=== PATIENT | female | born 2000 | race Hispanic/Latino ===

== ENCOUNTER 2021-12-16 12:11 | Emergency (ER) | payer MEDICAID ==
[~2021-12-16] VITALS: Ht 157.5 cm; Wt 68.9 kg
[2021-12-16] MEDS ORDERED: KETOROLAC 30MG VIAL (30MG/ML) IM ONE (12:30)
[2021-12-16] MEDS ORDERED: NAPR-1180 PO (14:39)
[2021-12-16 14:48] VITALS: BP 116/60
[2021-12-16 15:05] LABS: APPEARANCE,URINE Clear (CLEAR); BILIRUBIN,URINE Negative (NEGATIVE); COLOR,URINE Yellow (YELLOW); GLUCOSE, URINE (UA) Negative (NEGATIVE); KETONES,URINE Trace mg/dL (NEGATIVE); LEUKOCYTE ESTERASE ,URINE Negative (NEGATIVE); NITRATE,URINE Negative (NEGATIVE); OCCULT BLOOD,URINE Small (NEGATIVE); PROTEIN,URINE Negative (NEGATIVE)
[2021-12-16 15:14] LABS: BACTERIA,URINE Few /HPF (None Seen); RBC,URINE 0-1 /HPF (0-1)
[2021-12-16 15:15] LABS: MUCUS,URINE Moderate LPF (None Seen); SQUAMOUS EPITHELIAL CELL,UR Moderate /HPF (0-2)
== END 2021-12-16 14:51 | disposition home or self-care (01) ==
LOC: EDH 12:11
DX: M25.561 Pain in right knee (principal); M25.562 Pain in left knee; Z88.0 Allergy status to penicillin; Z79.899 Other long term (current) drug therapy; Z98.890 Other specified postprocedural states; W19.XXXA Unspecified fall, initial encounter; Y93.89 Activity, other specified; Y92.89 Other specified places as the place of occurrence of the external cause; Y99.8 Other external cause status
CPT/HCPCS: 29505; 73552; 73562 ×2; 73590; 81001; 81025; 87088; 96372; 99284; J1885

== ENCOUNTER 2023-05-25 20:06 | Emergency (ER) | payer MEDICAID ==
[~2023-05-25] VITALS: Ht 165.1 cm; Wt 69.6 kg
[~2023-05-25 20:06] MED LIST: NAPR-1180 PO
[2023-05-25 20:18] VITALS: BP 120/80; PULSE 85; RESP 18
[2023-05-25] MEDS ORDERED: HYDR28.32 TP (21:22)
[2023-05-25] MEDS ORDERED: DIPH-1242 PO (21:22)
[2023-05-25] MEDS ORDERED: DEXAMETHASONE SOD PHOSPHATE 4 MG/ML 1ML VIAL IM ONE (21:30)
== END 2023-05-25 21:41 | disposition home or self-care (01) ==
LOC: EDH 20:06
DX: L30.8 Other specified dermatitis (principal); J45.909 Unspecified asthma, uncomplicated; F84.0 Autistic disorder; Z90.89 Acquired absence of other organs; Z98.890 Other specified postprocedural states; Z88.0 Allergy status to penicillin
CPT/HCPCS: 99283; 96372; J1100